=== PATIENT | male | born 1995 | race Two or more races ===

== ENCOUNTER 2019-11-14 23:29 | Emergency (ER) | payer MEDICAID, OTHER ==
[~2019-11-14] VITALS: Ht 160 cm; Wt 68.9 kg
--- NOTE | 2019-11-14 23:40 | NUR ---
BIBFAMILY C/O THREE R HAND LACERATION S/P TRIP AND FALL, HAND WENT THROUGH GLASS DOOR. BLEEDING CONTROLLED WITH PRESSURE ON ARRIVAL. PT AAOX4. AMBULATORY WITH STEADY GAIT. VITAL SIGNS STABLE. NO ACUTE DISTRESS NOTED AT THIS TIME. WILL CONTINUE TO MONITOR.
[2019-11-14] MEDS ORDERED: LIDOCAINE HCL/PF 1% 30 ML SDV ONE (23:52)
[2019-11-14] MEDS ORDERED: HYDROCODONE/APAP 5/325MG TABLET ONE (23:53)
[2019-11-14] MEDS ORDERED: TDAP [DIPH/PERTUSSIS/TET] 0.5 ML VIAL IM ONE (23:54)
[2019-11-15] MEDS ORDERED: HYDROCODONE/APAP 5/325MG TABLET PO ONE
[2019-11-15] MEDS ORDERED: LIDOCAINE HCL/PF 1% 30 ML VIAL TP ONE
[2019-11-15] MEDS ORDERED: TDAP [DIPH/PERTUSSIS/TET] 0.5 ML VIAL IM ONE
--- NOTE | 2019-11-15 00:18 | NUR ---
dr. daly at bedside for lac repair.
[2019-11-15] MEDS ORDERED: LIDOCAINE HCL/MPF 1% 30 ML VIAL IJ ONE (00:37)
[2019-11-15] MEDS ORDERED: CEPHALEXIN MONOHYDRATE 500 MG CAPSULE PO ONE ×2 (00:57→01:00)
[2019-11-15 01:28] VITALS: BP 118/79
--- NOTE | 2019-11-15 01:28 | NUR ---
Patient discharged to home in stable condition. Written and verbal after care instructions given. Patient verbalizes understanding of instruction.Pt ambulatory with a steady gait
== END 2019-11-15 01:29 | disposition home or self-care (01) ==
LOC: ER 23:30
DX: S61.411A Laceration without foreign body of right hand, initial encounter (principal); S61.511A Laceration without foreign body of right wrist, initial encounter; W18.2XXA Fall in (into) shower or empty bathtub, initial encounter; Y93.E1 Activity, personal bathing and showering; Y92.091 Bathroom in other non-institutional residence as the place of occurrence of the external cause; Y99.8 Other external cause status
CPT/HCPCS: 12046; 73130; 90471; 90715; 99284; A6403; J3490 ×3